=== PATIENT | female | born 1995 | race Caucasian/White ===

== ENCOUNTER 2021-01-11 21:21 | Emergency (ER) | payer OTHER ==
[~2021-01-11] VITALS: Ht 160 cm; Wt 79.8 kg
[2021-01-11] MEDS ORDERED: MACROBID 100 M100 MG PO (23:58)
== END 2021-01-12 01:06 | disposition home or self-care (01) ==
LOC: ER 21:21
DX: O20.9 Hemorrhage in early pregnancy, unspecified (principal); O23.42 Unspecified infection of urinary tract in pregnancy, second trimester; Z3A.22 22 weeks gestation of pregnancy

== ENCOUNTER 2021-01-26 02:07 | Emergency (ER) | payer OTHER ==
[~2021-01-26] VITALS: Ht 154.9 cm; Wt 86.2 kg
[~2021-01-26 02:07] MED LIST: MACROBID 100 M100 MG PO
== END 2021-01-26 08:43 | disposition home or self-care (01) ==
LOC: ER 02:07
DX: R51.9 Headache, unspecified (principal)

== ENCOUNTER 2021-03-25 13:14 | Outpatient (CLI) | payer OTHER | END 2021-03-25 14:20 | disposition home or self-care (01) | LOC: PRENATAL 13:14 | PROVIDERS: ATTEND Obstetrics & Gynecology Maternal & Fetal Medicine | DX: O35.0XX1 Maternal care for (suspected) central nervous system malformation in fetus, fetus 1 (principal); O35.3XX1 Maternal care for (suspected) damage to fetus from viral disease in mother, fetus 1; O98.512 Other viral diseases complicating pregnancy, second trimester; Z36.89 Encounter for other specified antenatal screening; Z3A.27 27 weeks gestation of pregnancy ==

== ENCOUNTER 2021-06-21 10:46 | Outpatient (CLI) | payer OTHER | END 2021-06-21 11:27 | disposition home or self-care (01) | LOC: NST 10:46 | PROVIDERS: ATTEND Obstetrics & Gynecology | DX: O36.8130 Decreased fetal movements, third trimester, not applicable or unspecified (principal); Z3A.39 39 weeks gestation of pregnancy ==

== ENCOUNTER 2021-06-27 19:07 | Inpatient (IN) | payer OTHER ==
[~2021-06-27] VITALS: Ht 160 cm; Wt 82.6 kg
[2021-06-28] MEDS ORDERED: PRENA1 TRUE CO1 EACH (07:44)
[2021-06-28] MEDS ORDERED: CHILDREN'S ASPI81 MG (07:44)
== END 2021-06-30 14:53 | disposition home or self-care (01) | DRG 805 ==
LOC: LDR 19:07 → OB/GYN 06-28 15:37
PROVIDERS: ADMIT Obstetrics & Gynecology; ATTEND Obstetrics & Gynecology
PROC: 0W8NXZZ Division of Female Perineum, External Approach (ICD-10-PCS; 2021-06-27)
PROC: 4A1HXFZ Monitoring of Products of Conception, Cardiac Rhythm, External Approach (ICD-10-PCS; 2021-06-27)
PROC: 10E0XZZ Delivery of Products of Conception, External Approach (ICD-10-PCS; principal; 2021-06-28)
PROC: 0KQM0ZZ Repair Perineum Muscle, Open Approach (ICD-10-PCS; 2021-06-28)
DX: O70.1 Second degree perineal laceration during delivery (principal); O98.52 Other viral diseases complicating childbirth; U07.1 COVID-19; O48.0 Post-term pregnancy; Z37.0 Single live birth; Z3A.40 40 weeks gestation of pregnancy